=== PATIENT | female | born 1960 | race Caucasian/White ===

== ENCOUNTER 2023-08-29 21:27 | Emergency (ER) | payer MEDICARE, BC, SELFPAY ==
[2023-08-29 21:31] VITALS: BP 157/79; BMI 31.9
[2023-08-29 21:52] LABS: % Basophils 0.6 % (0-2); % Eosinophils 2.7 % (0-6); % Immature Granulocytes 0.1 % (0-0.5); % Lymphocytes 32.7 % (20.5-51.1); % Monocytes 7.9 % (1.7-9.3); Absolute Eosinophils 0.2 10^3/uL (0-0.7); Absolute Lymphocytes 2.3 10^3/uL (1.2-3.4); Absolute Monocytes 0.6 10^3/uL (0.1-0.6); Absolute Neutrophils 3.9 10^3/uL (1.4-6.5); Hematocrit 40.1 % (37.0-47.0); Hemoglobin 13.4 g/dL (12.0-16.0); Mean Corp Hgb Conc. 33.4 g/dL (33.0-37.0); Mean Corpuscular Hgb 31.1 pg (27.0-31.0); Mean Platelet Volume 9.4 fL (7.4-10.4); Nucleated Red Blood Cells % 0 %; Platelet Count 236 10^3/uL (130-400); Red Blood Cell Count 4.31 10^6/uL (4.20-5.40); Red Cell Dist. Width 13.9 % (11.5-14.5); White Blood Cell Count 6.9 10^3/uL (4.8-10.8)
[2023-08-29 22:12] LABS: ALT (SGPT) 16 U/L (0-35); AST (SGOT) 25 U/L (14-36); Albumin 4.4 g/dl (3.5-5.0); Alkaline Phosphatase 60 U/L (38-126); Blood Urea Nitrogen 29 mg/dl (7-17); Calcium 10.2 mg/dl (8.4-10.2); Carbon Dioxide 30 mmol/L (22-30); Chloride 102 mmol/L (98-107); Estimated Creatinine Clearance 102 ml/min; Glucose 113 mg/dl (70-99); Potassium 5.8 mmol/L (3.5-5.1); Sodium 134 mmol/L (135-145); Total Bilirubin 0.2 mg/dl (0.2-1.3); eGFR > 60.00
[2023-08-29 22:26] LABS: Troponin I < 0.012 ng/ml
--- NOTE | 2023-08-29 23:50 | ED.GENMED ---
History of Present Illness
General
Chief Complaint: Chest Pain
Source: patient
Time Seen by Provider: 08/29/23 23:31
Travel History
Have you had any contact with someone who has COVID-19?: No
Do you have any symptoms of coronavirus? Fever > 100 degrees, chills, cough, shortness of breath, sore throat, loss of taste or smell, muscle aches, or headache?: No
History of Present Illness
History of Present Illness:
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 However, this evening, this pain returned in the right scapular area and then radiated
across her back associated with a 'pressure' in the sternal area and right jaw pain. With this she felt nauseous and slightly diaphoretic. Since then, the pain is now more interscapular. The jaw pain on the right side went away. She momentarily
had left-sided jaw pain but that is now fully resolved. She denies chest pain currently. She denies associated dyspnea, abdominal pain, headache, numbness, tingling, focal weakness, fever, chills, cough, sore throat, rhinorrhea.
Past History
Past History
ED Past Medical History: GERD, Hypercholesterolemia and Psychiatric
ED Past Surgical History: Orthopedic
Social History
Tobacco: Non-smoker
Alcohol: Occasional
Drug: None
Living: with family
Phy Exam
Physical Exam
Physical Exam:
GENERAL: Alert , in no apparent distress
EYE: pupils equal and reactive
NECK: Supple, no significant adenopathy.
ENT: o/p clr, mmm.
CARDIAC: Regular rate and rhythm .
LUNGS: Clear breath sounds bilaterally, no acute respiratory distress, no wheezes/rales/rhonchi
ABDOMEN: Soft, without focal tenderness, no r/g, no cvat
NEUROLOGICAL: Alert and oriented, no focal neuro deficits
SKIN: Warm and dry, skin intact.
MUSCULOSKELETAL: No edema, well perfused.
PSYCH: Normal and appropriate interaction.
Scores
Heart Score for Chest Pain Patients
STEMI patient?: Not applicable
Course
Orders/Labs/Results
Orders:
Orders
08/29/23 21:29
Electrocardiogram (*1) Urgent
Reason for Study: Chest Pain
EKG- Treatment ONCE
08/29/23 21:42
Complete Blood Count/With Diff Urgent
Comprehensive Metabolic Panel Urgent
Troponin I Urgent
08/29/23 23:[address] Non Medication Order As Directed
Physician Order: temp please
Above order entered?: Yes
08/30/23 00:30
CT Chest Angio W/wo Iv Contras Urgent
Reason For Exam: interscap/back pain
08/30/23 00:42
Troponin I Urgent
08/30/23 02:35
Mag Hydrox/Al Hydrox/Simeth [Maalox] 30 ml Phenobarb/Hyoscy/Atropine/Scop [] 10 ml Viscous Lidocaine 2% [Xylocaine Viscous Cup] 10 ml PO NOW
08/30/23 02:52
Phenobarb/Hyoscy/Atropine/Scop [] 10 ml .ROUTE .STK-MED ONE
08/30/23 02:53
Mag Hydrox/Al Hydrox/Simeth [Maalox] 30 ml .ROUTE .STK-MED ONE
Viscous Lidocaine 2% [Xylocaine Viscous Cup] 15 ml .ROUTE .STK-MED ONE
Abnormal Lab Results
08/29/23
21:42
MCH 31.1 H pg
(27.0-31.0)
Sodium 134 L mmol/L
(135-145)
Potassium 5.8 H mmol/L
(3.5-5.1)
BUN 29 H mg/dl
(7-17)
Glucose 113 H mg/dl
(70-99)
08/29/23 21:42
08/29/23 21:42
Vital Signs
Initial and Last Documented VS:
Initial Vital Signs
Pulse Resp BP Pulse Ox
69 16 157/79 99
08/29/23 21:31 08/29/23 21:31 08/29/23 21:31 08/29/23 21:31
Last Documented Vital Signs
Temp Pulse Resp BP Pulse Ox
98.1 F 68 10 111/54 97
08/30/23 00:48 08/30/23 01:30 08/30/23 01:30 08/30/23 02:32 08/30/23 01:54
*Critical Care Note
Total Time (30-74mins, 75-104mins- exclusive of procedures): Not Applicable
Update Note
Update Note:
Patient presents to the Emergency Department with ___back chest and jaw pain
Number and Complexity of Problems Addressed at the Encounter
� Chronic conditions affecting care:
� Acute Exacerbation and/or Progression of Chronic Illness:
� Differential Diagnosis includes: But not limited to gallbladder disease, ACS, aortic dissection, etc.
Amount and/or Complexity of Data to be Reviewed and Analyzed
� I performed an independent evaluation of and my interpretation is:
EKG: Read by me, normal sinus rhythm, normal rate, normal axis, no no acute ischemia
CT: Read by vision no aortic dissection or acute aortic syndrome small pericardial effusion no central lobar gross segmental PE no lung consolidation pneumothorax or pleural effusion very small hiatal hernia
Xrays:
Laboratory Studies: Troponin unremarkable
Other:
� Review of other/old records reveals:
� Clinical information was obtained by an independent historian:
� Prescriptions/Medications Considered but not given:
� Further testing considered but not performed:
Risk of Complications and/or Morbidity or Mortality of Patient Management
� Social determinants of health affecting care:
� Discussion with other providers (PCP, Hospitalists, Consultants, etc):
� Escalation of care including admission/observation vs risk of discharge considered: Highly doubt liver/gallbladder etiology for patient's pain given lack of tenderness to palpation, LFT abnormalities, etc. Patient comfortable.
She did request a GI cocktail for what feels like indigestion. Gait normal, abdomen remains soft and is nontender, no chest pain shortness of breath diaphoresis, etc. Discussed with patient importance of follow-up and reasons to return the
emergency department.
ED Attending Note
-
Portions of this chart may have been created with voice recognition software.� Occasional wrong word or��sound alike� substitutions may have occurred due to the inherent limitations of voice recognition software.
Discharge Plan
Departure
Patient Disposition: Home (Routine Discharge)
Date of Disposition: 08/30/23
Time of Disposition: 02:58
Patient with high blood pressure during this ER visit?: Yes
Condition: Good
Discharge Problem:
Chest pain
Instructions: Chest Pain PCP Follow Up, BLOOD PRESSURE
Referrals:
Latonya Morocho MD [Family Provider] - Follow up in 2-3 days
Activity Restrictions/Additional Instructions:
IF YOU DEVELOP RECURRENT/NEW/WORSENING PAIN, FEVER, VOMITING, TROUBLE BREATHING, DIZZINESS, OR OTHER WORRISOME SIGNS, GO TO THE ER IMMEDIATELY!
Interventions
Interventions:
*Risk Screen - Suicide Last Done: 08/30/23 00:48
*General Assessment Last Done: 08/30/23 00:48
*Neglect/Abuse Screening Last Done: 08/30/23 00:48
ED- Fall Risk Assessment Last Done: 08/30/23 00:48
*ED COVID-19 Vaccine History Last Done: 08/29/23 21:31
*Nursing Disposition Last Done: 08/30/23 03:29
ED- Cardiac Assessment Last Done: 08/30/23 00:48
Discharge Date and Time
Discharge Date/Time: 08/30/23 03:30
Print Language: GRENADIAN
[2023-08-30 01:02] VITALS: BP 147/71
[2023-08-30 01:14] LABS: Troponin I < 0.012 ng/ml
[2023-08-30 01:30] VITALS: BP 134/66
[2023-08-30 02:32] VITALS: BP 111/54
[2023-08-30] MEDS: MAALOX 50 PO (03:01)
== END 2023-08-30 03:30 | disposition home or self-care (01) ==
LOC: EMR 21:27
PROVIDERS: Emergency Medicine; EMERGENCY PHYSICIAN Emergency Medicine; FAMILY PHYSICIAN Family Medicine
DX: R07.89 Other chest pain (principal); K21.9 Gastro-esophageal reflux disease without esophagitis; E78.00 Pure hypercholesterolemia, unspecified
CPT/HCPCS: 99284; 71275; 80053; 84484; 85025; 93005; Q9967

== ENCOUNTER → 2024-12-10 14:00 | Outpatient (REF) | payer MEDICARE, BC, SELFPAY | LOC: HWRAD 14:00 | PROVIDERS: ATTENDING PHYSICIAN Specialist; FAMILY PHYSICIAN Family Medicine | DX: Z96.651 Presence of right artificial knee joint (principal); M25.561 Pain in right knee | CPT/HCPCS: 73700 ==

== ENCOUNTER → 2024-12-30 10:14 | Outpatient (REF) | payer MEDICARE, BC, SELFPAY | LOC: RAD 10:14 | PROVIDERS: ATTENDING PHYSICIAN Specialist; FAMILY PHYSICIAN Family Medicine | DX: Z96.651 Presence of right artificial knee joint (principal); M25.561 Pain in right knee | CPT/HCPCS: 78315; A9503 ==

== ENCOUNTER → 2025-02-28 09:32 | Outpatient (REF) | payer MEDICARE, BC, SELFPAY | LOC: HWRAD 09:32 | PROVIDERS: ATTENDING PHYSICIAN Clinical Nurse Specialist Acute Care; FAMILY PHYSICIAN Family Medicine | DX: M25.561 Pain in right knee (principal) | CPT/HCPCS: 73564 ==

== ENCOUNTER → 2025-03-04 14:10 | Outpatient (REF) | payer MEDICARE, BC, SELFPAY ==
[2025-03-04 19:22] LABS: Body Fluid Second Tech CMC
== END ==
LOC: RAD 14:10
PROVIDERS: Radiology Diagnostic Radiology; ATTENDING PHYSICIAN Clinical Nurse Specialist Acute Care
DX: Z96.651 Presence of right artificial knee joint (principal); M25.561 Pain in right knee
CPT/HCPCS: 10160; 87015; 87070; 87205; 89051; 89060

== ENCOUNTER → 2025-03-09 13:25 | Outpatient (REF) | payer MEDICARE, BC, SELFPAY | LOC: RAD 13:25 | PROVIDERS: ATTENDING PHYSICIAN Clinical Nurse Specialist Acute Care; FAMILY PHYSICIAN Family Medicine | DX: Z96.651 Presence of right artificial knee joint (principal) | CPT/HCPCS: 27369; 73580 ==